=== PATIENT | male | born 1965 | race Caucasian/White ===

== ENCOUNTER 2017-02-18 11:18 | Emergency (ER) | payer SELFPAY ==
--- NOTE | 2017-02-18 11:41 | EDM.PDOC ---
ED HPI GENERAL MEDICAL PROBLEM - General Chief Complaint: General Stated Complaint: PT WOULD LIKE TO BE SEEN Time Seen by Provider: 02/18/17 11:40 Source of Information: Reports: Patient History Limitations: Reports: No Limitations - History of Present Illness INITIAL COMMENTS - FREE TEXT/NARRATIVE: HISTORY AND PHYSICAL: History of present illness: Patient is a 51-year-old male that presents to the emergency room today with complaints of right arm pain that occurred on Saturday and since has resolved. Patient reports that he noticed right shoulder pain when he woke up on Saturday morning which is accompanied by some nausea. Reports he had no numbness, tingling, chest pain, shortness of breath during this episode of pain. Pain resolved around suppertime the evening was able to sleep without any problems. Since that time he has had no pain in either Saturday or today. Currently offers no complaints. Patient reports he tried to get into the clinic this morning for evaluation of the history of shoulder pain but was instructed to present to the emergency department. Patient does have a past medical history of hypertension and arthritis. Reports that he does have bilateral shoulder pain usually and hip pain due to his arthritis which he takes [id number] pain relievers. Denies any recent trauma or injury. Patient has full range of motion without any pain or difficulty. Review of systems: As per history of present illness and below otherwise all systems reviewed and negative. Past medical history: As per history of present illness and as reviewed below otherwise noncontributory. Surgical history: As per history of present illness and as reviewed below otherwise noncontributory. Social history: No reported history of drug or alcohol abuse. Family history: As per history of present illness and as reviewed below otherwise noncontributory. Physical exam: Gen.: Nontoxic, well-developed, well-nourished 51-year-old male. Able to speak in full sentences without shortness of breath. Alert and oriented HEENT: Atraumatic, normocephalic, pupils reactive, negative for conjunctival pallor or scleral icterus, mucous membranes moist, throat clear, neck supple, nontender, trachea midline. Lungs: Clear to auscultation, breath sounds equal bilaterally, chest nontender. Heart: S1S2, regular, negative for clicks, rubs, or JVD. Abdomen: Soft, nondistended, nontender. Negative for masses or hepatosplenomegaly. Negative for costovertebral tenderness. Pelvis: Stable nontender. Genitourinary: Deferred. Rectal: Deferred. Extremities: Atraumatic. Neurovascular unremarkable. Strong and equal radial pulses bilaterally. Full range of motion without difficulty or pain. Neuro: Awake, alert, oriented. Cranial nerves II through XII unremarkable. Cerebellum unremarkable. Motor and sensory unremarkable throughout. Exam nonfocal. Discussed the x-ray report with the patient. As the patient has had no pain since Saturday night. Instructed the patient if the pain should return he should follow-up with the orthopedic doctor, primary care or may return to the emergency room as discussed. Patient is agreeable denies any further questions Diagnostics: X-ray of the right shoulder Therapeutics: [] Impression: Shoulder pain, right Definitive disposition and diagnosis as appropriate pending reevaluation and review of above. Onset Date: 02/16/17 - Related Data Allergies Allergy/AdvReac Type Severity Reaction Status Date / Time No Known Allergies Allergy Verified 02/18/17 11:31 Past Medical History Cardiovascular History: Reports: Hypertension Social & Family History - Family History Family Medical History: Noncontributory - Tobacco Use Smoking Status *Q: Never Smoker - Caffeine Use Caffeine Use: Reports: Coffee - Recreational Drug Use Recreational Drug Use: No ED ROS GENERAL - Review of Systems Review Of Systems: ROS reveals no pertinent complaints other than HPI. ED EXAM, GENERAL - Physical Exam Exam: See Below (See dictation) Course - Vital Signs Last Recorded V/S: Last Vital Signs Temp 36.6 C 02/18/17 11:26 Pulse 95 02/18/17 11:26 Resp 18 02/18/17 11:26 BP 176/111 H 02/18/17 11:26 Pulse Ox 95 02/18/17 11:26 Departure - Departure Time of Disposition: 12:49 Disposition: Home, Self-Care 01 Condition: Good Clinical Impression: Shoulder pain, right Qualifiers: Chronicity: unspecified Qualified Code(s): M25.511 - Pain in right shoulder - Discharge Information Referrals: Tonie Mccarty NP [Primary Care Provider] - Forms: ED Department Discharge Additional Instructions: The following information is given to patients seen in the emergency department who are being discharged to home. This information is to outline your options for follow-up care. We provide all patients seen in our emergency department with a follow-up referral. The need for follow-up, as well as the timing and circumstances, are variable depending upon the specifics of your emergency department visit. If you don't have a primary care physician on staff, we will provide you with a referral. We always advise you to contact your personal physician following an emergency department visit to inform them of the circumstance of the visit and for follow-up with them and/or the need for any referrals to a consulting specialist. The emergency department will also refer you to a specialist when appropriate. This referral assures that you have the opportunity for followup care with a specialist. All of these measure are taken in an effort to provide you with optimal care, which includes your followup. Under all circumstances we always encourage you to contact your private physician who remains a resource for coordinating your care. When calling for followup care, please make the office aware that this follow-up is from your recent emergency room visit. If for any reason you are refused follow-up, please contact the [facility] emergency department at and ask to speak to the emergency department charge nurse. [facility] Specialty Care--Orthopedic clinic Professional Building [address] [place] [id number] [facility] Primary care- Internal Medicine and Family [facility] [address] [place] [id number] Discussed the x-ray results with patient. If pain should return please follow- up with the orthopedic clinic or your primary care doctor as discussed. Please return to the emergency room as needed as discussed.
--- NOTE | 2017-02-18 12:40 | CR ---
EXAMINATION: Right shoulder HISTORY: Pain COMPARISON: None TECHNIQUE: 3 views FINDINGS/IMPRESSION: Mild acromioclavicular and glenohumeral osteoarthritic changes are noted without an acute osseous abnormality. Bone mineralization and joint spaces appear grossly preserved.
[2017-02-18 12:56] VITALS: BP 149/103
== END 2017-02-18 12:56 | disposition home or self-care (01) ==
LOC: MW.ED 11:18
DX: M25.511 Pain in right shoulder (principal); I10 Essential (primary) hypertension
CPT/HCPCS: 73030-26-RT; 73030-RT; 99282; 99283

== ENCOUNTER 2020-08-31 10:08 | Emergency (ER) | payer BC ==
--- NOTE | 2020-08-31 10:19 | EDM.PDOC ---
ED HPI GENERAL MEDICAL PROBLEM - General Chief Complaint: Lower Extremity Injury/Pain Stated Complaint: RIGHT KNEE PAIN Time Seen by Provider: 08/31/20 10:08 Source of Information: Reports: Patient History Limitations: Reports: No Limitations - History of Present Illness INITIAL COMMENTS - FREE TEXT/NARRATIVE: HISTORY AND PHYSICAL: History of present illness: Patient is a 55-year-old male who presents to the emergency room with right knee pain. He states he has had pain for approximately a week and a half and was seen in the clinic for what he was diagnosed with was gout. States he does have a history of gout and initially did feel similar. He did have a course of steroids but states the pain and swelling has not improved since the treatment. He did attempt to be seen again at the clinic but they recommended he come to the emergency room for evaluation. He denies any injury, trauma or falls. He denies any numbness, weakness or saddle paresthesias. States he feels like the knee is so swollen he is unable to bend. Patient denies any fever, chills, headache, change in vision, syncope or near syncope. Denies any chest pain, back pain, shortness of breath or cough. Denies any GI or symptoms. Review of systems: As per history of present illness and below otherwise all systems reviewed and negative. Past medical history: As per history of present illness and as reviewed below otherwise noncontributory. Surgical history: As per history of present illness and as reviewed below otherwise noncontributory. Social history: See social history for further information Family history: As per history of present illness and as reviewed below otherwise noncontributory. Physical exam: General: Well developed and well nourished. Alert and orientated x 3. Nontoxic in appearance and in no acute distress. Vital signs are stable and have been reviewed by me. Nursing notes were reviewed. HEENT: Atraumatic, normocephalic, pupils equal and reactive bilaterally, negative for conjunctival pallor or scleral icterus, mucous membranes moist, TMs normal bilaterally, throat clear, neck supple, nontender, trachea midline. No drooling or trismus noted. No meningeal signs. No hot potato voice noted. Lungs: Clear to auscultation bilaterally. No wheezes, rales, or rhonchi. Chest nontender. Normal work of breathing, no accessory muscles used. Heart: S1S2, regular rate and rhythm without overt murmur, gallops, or rubs. No JVD. No peripheral edema Abdomen: Soft, nondistended, nontender. Normoactive bowel sounds. Negative for masses or costovertebral tenderness. Skin: Intact, warm, dry. No erythema or warmth noted of the right knee. No lesions or rashes noted. Hematologic: No petechiae or purpra. Mucosa appropriate color and normal nail bed color and refill. Extremities: Atraumatic, moves all extremities per self without difficulty or deficits, generalized swelling of the right knee, negative for cords or calf pain. Neurovascular unremarkable. Neuro: Awake, alert, oriented. Cranial nerves II through XII unremarkable. Cerebellum unremarkable. Motor and sensory unremarkable throughout. Exam nonfocal. Psychiatric: Mood and affect are appropriate. Normal thought process. Answering questions appropriately. Notes: *This patient was seen and evaluated during the 2019 SARS-CoV-2 novel coronavirus pandemic period. Community viral transmission is ongoing at time of this encounter and the emergency department is operating under pandemic response procedures. Patient skin is pink warm and dry. There is no evidence of infection or injury. He does have some generalized swelling of the right knee when compared to the left. We will do some basic lab work. Patient's labs are unremarkable. Knee x-ray shows no evidence of fracture or dislocation. Large joint effusion. Patient states he does have a walker that he uses at home and would prefer to use this over crutches. I did offer some pain medication for home, he declines. We will place him in a knee sleeve to provide some compression and stability of the knee. Would like patient to wear this over the next 1 to 3 days for comfort purposes. I have talked with the patient about today's findings, in addition to providing specific details for plan of care. Reassessment at the time of disposition demonstrates that the patient is in no acute distress. The patient is stable for discharge, counseling was provided and we discussed in great detail signs and symptoms that would prompt them to return to the Emergency Department. Medication, follow up and supportive care measures were reviewed and discussed. Voices understanding and is agreeable to plan of care. Denies any further questions or concerns at this time. Diagnostics: CBC, CMP, uric acid, x-ray Therapeutics: Knee sleeve, right Prescription: None Impression: Right knee effusion Plan: 1. You were evaluated today on an emergent basis. Your x-ray shows no evidence of fracture or dislocation. You do have fluid behind your knee which is causing your swelling. Your lab work today was within normal limits. I would like you to rest, ice and elevate as able. Please be nonweightbearing over the next 1 to 3 days and use the compression sleeve as we discussed. Orthopedics can drain your knee if swelling doesn't go down. 2. You can alternate Tylenol and ibuprofen as needed for pain and fever management. 3. We encourage you to follow up with orthopedist in the next few days for re- evaluation and further care/management. 4. If your symptoms should worsen, new symptoms develop or any of the signs and symptoms we discussed should arise please return to the emergency room or call 911 (if needed). Definitive disposition and diagnosis as appropriate pending reevaluation and review of above. Right knee Pain Score (Numeric/FACES): 6 - Related Data Allergies Allergy/AdvReac Type Severity Reaction Status Date / Time No Known Allergies Allergy Verified 08/31/20 10:28 Home Meds: Home Meds amLODIPine [Norvasc] 2.5 mg PO DAILY 08/31/20 [History] Past Medical History Cardiovascular History: Reports: Hypertension Social & Family History - Family History Family Medical History: No Pertinent Family History - Caffeine Use Caffeine Use: Reports: Coffee Review of Systems - Review of Systems Review Of Systems: Comprehensive ROS is negative, except as noted in HPI. ED EXAM, GENERAL - Physical Exam Exam: See Below (See dictation) Course - Vital Signs Last Recorded V/S: Last Vital Signs Temp 97.2 F 08/31/20 10:24 Pulse 103 H 08/31/20 10:24 Resp 18 08/31/20 10:24 BP 151/98 H 08/31/20 10:24 Pulse Ox 99 08/31/20 10:24 - Orders/Labs/Meds Orders: Active Orders 24 hr Category Date Time Status Knee 3V Rt [CR] Stat Exams 08/31/20 10:15 Taken DME for Discharge [COMM] Stat Oth 08/31/20 11:32 Ordered Labs: Laboratory Tests 08/31/20 08/31/20 Range/Units 10:35 10:35 WBC 8.21 (4.0-11.0) K/uL RBC 4.38 L (4.50-5.90) M/uL Hgb 13.9 (13.0-17.0) g/dL Hct 41.9 (38.0-50.0) % MCV 95.7 (80.0-98.0) fL MCH 31.7 (27.0-32.0) pg MCHC 33.2 (31.0-37.0) g/dL RDW Std Deviation 44.1 (28.0-62.0) fl RDW Coeff of Pedro 13 (11.0-15.0) % Plt Count 412 H (150-400) K/uL MPV 9.40 (7.40-12.00) fL Neut % (Auto) 73.3 (48.0-80.0) % Lymph % (Auto) 19.1 (16.0-40.0) % Ventura % (Auto) 6.0 (0.0-15.0) % Eos % (Auto) 1.2 (0.0-7.0) % Baso % (Auto) 0.4 (0.0-1.5) % Neut # (Auto) 6.0 H (1.4-5.7) K/uL Lymph # (Auto) 1.6 (0.6-2.4) K/uL Ventura # (Auto) 0.5 (0.0-0.8) K/uL Eos # (Auto) 0.1 (0.0-0.7) K/uL Baso # (Auto) 0.0 (0.0-0.1) K/uL Nucleated RBC % 0.0 /100WBC Nucleated RBCs # 0 K/uL Sodium 136 (136-148) mmol/L Potassium 4.2 (3.5-5.1) mmol/L Chloride 101 (98-107) mmol/L Carbon Dioxide 25.4 (21.0-32.0) mmol/L BUN 13 (7.0-18.0) mg/dL Creatinine 1.2 (0.8-1.3) mg/dL Est Cr Clr Drug Dosing 64.26 mL/min Estimated GFR (MDRD) > 60.0 ml/min Glucose 115 H (74-106) mg/dL Uric Acid 6.1 (2.6-7.2) mg/dL Calcium 9.7 (8.5-10.1) mg/dL Total Bilirubin 0.5 (0.2-1.0) mg/dL AST 16 (15-37) IU/L ALT 27 (14-63) IU/L Alkaline Phosphatase 87 (46-116) U/L Total Protein 8.8 H (6.4-8.2) g/dL Albumin 3.5 (3.4-5.0) g/dL Globulin 5.3 H (2.6-4.0) g/dL Albumin/Globulin Ratio 0.7 L (0.9-1.6) Departure - Departure Time of Disposition: 11:41 Disposition: Home, Self-Care 01 Clinical Impression: Knee effusion, right - Discharge Information Instructions: Knee Effusion, [id number] Referrals: Tonie Mccarty NP [Primary Care Provider] - Forms: ED Department Discharge Additional Instructions: The following information is given to patients seen in the emergency department who are being discharged to home. This information is to outline your options for follow-up care. We provide all patients seen in our emergency department with a follow-up referral. The need for follow-up, as well as the timing and circumstances, are variable depending upon the specifics of your emergency department visit. If you don't have a primary care physician on staff, we will provide you with a referral. We always advise you to contact your personal physician following an emergency department visit to inform them of the circumstance of the visit and for follow-up with them and/or the need for any referrals to a consulting specialist. The emergency department will also refer you to a specialist when appropriate. This referral assures that you have the opportunity for follow-up care with a specialist. All of these measure are taken in an effort to provide you with optimal care, which includes your follow-up. Under all circumstances we always encourage you to contact your private physician who remains a resource for coordinating your care. When calling for follow-up care, please make the office aware that this follow-up is from your recent emergency room visit. If for any reason you are refused follow-up, please contact the [facility] Emergency Department at and asked to speak to the emergency department charge nurse. [facility] Primary Care [address] [place] [id number] [facility] [address] [place] [address], [place] [address] Thank you for choosing the [facility] emergency department in [place] for your medical needs today. It was a pleasure caring for you. Today you were seen in the emergency department for knee pain and swelling. 1. You were evaluated today on an emergent basis. Your x-ray shows no evidence of fracture or dislocation. You do have fluid behind your knee which is causing your swelling. Your lab work today was within normal limits. I would like you to rest, ice and elevate as able. Please be nonweightbearing over the next 1 to 3 days and use the compression sleeve as we discussed. Orthopedics can drain your knee if swelling doesn't go down. 2. You can alternate Tylenol and ibuprofen as needed for pain and fever management. 3. We encourage you to follow up with orthopedist in the next few days for re- evaluation and further care/management. 4. If your symptoms should worsen, new symptoms develop or any of the signs and symptoms we discussed should arise please return to the emergency room or call 911 (if needed). Sepsis Event Note (ED) - Focused Exam Vital Signs: Vital Signs Temp Pulse Resp BP Pulse Ox 08/31/20 10:24 97.2 F 103 H 18 151/98 H 99 - My Orders Last 24 Hours: My Active Orders 08/31/20 10:15 Knee 3V Rt [CR] Stat 08/31/20 11:32 DME for Discharge [COMM] Stat - Assessment/Plan Last 24 Hours: My Active Orders 08/31/20 10:15 Knee 3V Rt [CR] Stat 08/31/20 11:32 DME for Discharge [COMM] Stat
[2020-08-31 10:28] VITALS: BP 151/98; PULSE 103
[2020-08-31 11:25] LABS: BLOOD UREA NITROGEN,BUN 13 mg/dL (7.0-18.0); CARBON DIOXIDE,CO2 25.4 mmol/L (21.0-32.0); CHLORIDE,CL 101 mmol/L (98-107); GLUCOSE RANDOM 115 mg/dL (74-106); POTASSIUM,K 4.2 mmol/L (3.5-5.1); SODIUM,NA 136 mmol/L (136-148)
--- NOTE | 2020-08-31 11:36 | CR ---
INDICATION: Right knee pain and swelling. TECHNIQUE: Three views of the right knee. COMPARISON: None. FINDINGS: Joint effusion with fluid distending the suprapatellar bursa. No fracture or bone destruction. Joint space is normal. No chondrocalcinosis. IMPRESSION: Large joint effusion. Dictated by Sushil Chan MD @ Aug 31 2020 11:32AM Signed by Dr. Sushil Chan @ Aug 31 2020 11:34AM
== END 2020-08-31 11:54 | disposition home or self-care (01) ==
LOC: MW.ED 10:08
DX: M25.461 Effusion, right knee (principal)
CPT/HCPCS: 36415; 73562-26-RT; 73562-RT; 80053; 84550; 85025; 99283-25